=== PATIENT | female | born 1975 | race Caucasian/White ===

== ENCOUNTER → 2021-12-24 17:25 | Outpatient (BNVA) | payer OTHER, SELFPAY | PROVIDERS: Family Provider Obstetrics & Gynecology; PCP Family Medicine; Visit Provider Registered Nurse Neonatal Intensive Care | DX: J02.9 Acute pharyngitis, unspecified (principal) | CPT/HCPCS: 87071; 87880 ==

== ENCOUNTER 2022-07-05 12:33 | Outpatient (CLI) | payer OTHER, SELFPAY ==
[2022-07-05 13:22] LABS: Basophils % 0.6 %; Eosinophils # 0.1 10^3/uL (0.0-0.8); Eosinophils % 1.2 %; Hematocrit 43.5 % (37.0-47.0); Hemoglobin 14.2 g/dL (11.5-15.3); Lymphocytes # 2.2 10^3/uL (0.8-4.8); Lymphocytes % 32.2 %; Mean Corpuscular HGB Conc 32.6 g/dL (30.0-36.0); Mean Corpuscular Hemoglobin 29.8 pg (28.0-34.0); Mean Corpuscular Volume 91.4 fl (81-99); Mean Platelet Volume 10.5 fL (7.4-10.4); Monocytes # 0.5 10^3/uL (0.2-0.9); Monocytes % 6.6 %; Neutrophils # 4.08 10^3/uL (1.8-7.7); Nucleated Red Blood Cells % 0 %; Platelet Count 318 10^3/cmm (130-400); Red Blood Count 4.76 10^6/uL (4.1-5.3); Red Cell Distribution Width 13.2 % (12.1-15.1); White Blood Count 6.9 10^3/uL (4.0-10.0)
[2022-07-05 13:40] LABS: Ferritin 59 ng/mL (15-150); Iron 64 ug/dL (37-145); Percent Saturation 19.5 % (20-50); Total Iron Binding Capacity 328 mcg/dl; Unsaturated Iron Binding 264 ug/dL (112-347)
[2022-07-05 13:56] LABS: 25 Hydroxy Vitamin D 25 ng/mL (30-100); Vitamin B12 430 pg/mL (232-1245)
[2022-07-08 20:57] LABS: Zinc Level, Serum or Plasma 73 mcg/dL (60-130)
== END 2022-07-05 12:34 | disposition home or self-care (01) ==
LOC: LAB 12:34
PROVIDERS: PCP Family Medicine; Visit Provider Nurse Practitioner Family
DX: L65.0 Telogen effluvium (principal)
CPT/HCPCS: 36415; 82306; 82607; 82728; 83540; 83550; 84630; 85025